=== PATIENT | male | born 1975 | race Caucasian/White ===

== ENCOUNTER 2018-06-08 09:05 | Day surgery (SDC) | payer MEDICAID ==
[2018-06-07 14:08] LABS: BASOPHILS # (AUTO) 0.1 X10'3 (0-0.2); EOSINOPHILS # (AUTO) 0.4 X10'3 (0-0.9); EOSINOPHILS % (AUTO) 4.7 % (0-6); HEMATOCRIT 43.4 % (42.0-52.0); LYMPHOCYTES # (AUTO) 2.6 X10'3 (1.1-4.8); LYMPHOCYTES % (AUTO) 33.6 % (21-51); MEAN CORPUSCULAR HGB CONC 32.2 % (33.0-36.5); MEAN CORPUSCULAR VOLUME 83.8 FL (78-98); MONOCYTES # (AUTO) 0.7 X10'3 (0-0.9); MONOCYTES % (AUTO) 8.7 % (2-12); PLATELET COUNT 374 X10'3 (140-440); RED BLOOD COUNT 5.18 X10'6 (4.70-6.10); RED CELL DISTRIBUTION WIDTH 13.6 % (11.5-14.5); WHITE BLOOD COUNT 7.8 X10'3 (4.5-11.0)
[2018-06-07 14:22] LABS: ALBUMIN 3.8 G/DL (3.4-5.0); ALBUMIN/GLOBULIN RATIO 1.1 (1.1-1.5); ALKALINE PHOSPHATASE 88 IU/L (46-116); BLOOD UREA NITROGEN 15 MG/DL (7-18); CALCIUM 8.8 MG/DL (8.5-10.1); CHLORIDE 102 MMOL/L (99-107); CREATININE 0.75 MG/DL (0.60-1.10); PRE OP ALT 30 U/L (30-65); PRE OP ANION GAP 9 (8-16); PRE OP AST 19 U/L (10-37); PRE OP BILIRUB, TOTAL 0.2 MG/DL (0.0-1.0); PRE OP GLUCOSE 92 MG/DL (70-104); PRE OP SODIUM 140 MMOL/L (135-145); TOTAL CARBON DIOXIDE 29.3 MMOL/L (24-32); TOTAL PROTEIN 7.3 G/DL (6.4-8.2); eGFR > 90 ML/MIN
[2018-06-07 14:32] LABS: PRE OP POTASSIUM 4.5 MMOL/L (3.4-5.1)
[2018-06-08] VITALS (13 sets, daily range): BP systolic 138–163; BP diastolic 76–100
[~2018-06-08] VITALS: Ht 188 cm; Wt 158.1 kg
[~2018-06-08 09:05] MED LIST: ALLO100T PO; BUPR1FIL3; CARV-49 PO; DOCUMENT DATE & TIME OF BETA-BLOCKER PO ONE; DULO-31 PO; HYDR100T27; LAMO100T89; LISI40TA4; METF500T7 PO; NABU500T2 PO; PANT40TA4; TIZA4TAB11 PO; VANCOMYCIN INJ 1000 MG in NORMAL SALINE 250ml IV.SOLN IV ONE; cefazolin/dext.iso 2gm/100 ML IV ONE; famotidine 20mg tablet PO ONE; ringers solution, lacted 1,000 ML IV SCH
[2018-06-08] MEDS ORDERED: BUPIVAcaine/PF 2.5mg/ml (0.25%) 10ml vial ONE ×2 (11:13→13:50)
[2018-06-08] MEDS ORDERED: triamcinolone acetonide 40mg/ml inj ONE (11:13)
[2018-06-08] MEDS ORDERED: methylPREDNISolone sod succ 125mg/2ml vial ONE (11:13)
[2018-06-08] MEDS ORDERED: sevoflurane 250ml liquid IH ONE (11:38)
[2018-06-08] MEDS ORDERED: cloNIDine hcl/PF 100mcg/ml inj ONE (11:40)
[2018-06-08] MEDS ORDERED: ROPIVAcaine 0.5% (5mg/ml) 30ml vial ONE (11:40)
[2018-06-08] MEDS ORDERED: midazolam 2 mg/2 ml injection ONE ×3 (11:41→11:50)
[2018-06-08] MEDS ORDERED: fentaNYL/PF 50MCG/1 ML 2ML syringe ONE (11:41)
[2018-06-08] MEDS ORDERED: ondansetron/PF 4mg/2ml inj IV PRN (12:45)
[2018-06-08] MEDS ORDERED: morphine 4 MG/ML inj SYRINge IV PRN ×2 (12:45)
[2018-06-08] MEDS ORDERED: ringers solution, lacted 1,000 ML IV SCH (12:45)
[2018-06-08] MEDS ORDERED: meperidine/PF 25mg/ml syringe IV PRN ×3 (12:45)
[2018-06-08] MEDS ORDERED: proCHLORperazine 10 MG/2 ml inj IV PRN (12:45)
[2018-06-08] MEDS ORDERED: propofol inj 20 ML IV ONE (13:50)
[2018-06-08] MEDS ORDERED: rocuronium 10mg/ml inj IV ONE (13:50)
--- NOTE | 2018-06-08 14:10 | NUR ---
Received from OR via , accompanied by Anesthesiologist DR ROBLERO and report given by Anesthesiolgist. AWAKENS TO VOICE. VITALS STABLE. DRESSINGS DI. GEORGE PAIN. FINGERS WARM AND PINK.
--- NOTE | 2018-06-08 16:00 | NUR ---
AWAKE AND ORIENTED. VITALS STABLE. DRESSING DI. GEORGE PAIN. HOME WITH HIS AT THIS TIME.
== END 2018-06-08 16:00 | disposition home or self-care (01) ==
LOC: PAS 09:05
PROVIDERS: ATTEND Orthopaedic Surgery
DX: S46.111A Strain of muscle, fascia and tendon of long head of biceps, right arm, initial encounter (principal); M75.111 Incomplete rotator cuff tear or rupture of right shoulder, not specified as traumatic; G56.01 Carpal tunnel syndrome, right upper limb; M19.011 Primary osteoarthritis, right shoulder; M75.41 Impingement syndrome of right shoulder; G56.21 Lesion of ulnar nerve, right upper limb; M65.811 Other synovitis and tenosynovitis, right shoulder; M94.211 Chondromalacia, right shoulder; M75.51 Bursitis of right shoulder; G89.29 Other chronic pain; M19.012 Primary osteoarthritis, left shoulder; E11.42 Type 2 diabetes mellitus with diabetic polyneuropathy; M10.9 Gout, unspecified; E78.5 Hyperlipidemia, unspecified; I11.0 Hypertensive heart disease with heart failure; I50.9 Heart failure, unspecified; K21.9 Gastro-esophageal reflux disease without esophagitis; E66.01 Morbid (severe) obesity due to excess calories; F32.89 Other specified depressive episodes; Z88.1 Allergy status to other antibiotic agents; Z68.41 Body mass index [BMI] 40.0-44.9, adult; Z87.891 Personal history of nicotine dependence; Z79.84 Long term (current) use of oral hypoglycemic drugs; Z88.8 Allergy status to other drugs, medicaments and biological substances; Z79.899 Other long term (current) drug therapy; Z98.890 Other specified postprocedural states; X58.XXXA Exposure to other specified factors, initial encounter; Y93.89 Activity, other specified; Y92.89 Other specified places as the place of occurrence of the external cause; Y99.8 Other external cause status
CPT/HCPCS: 29823; 29824; 29826; 36415; 64719; 64721; 80053; 82948; 85025; 93005; A6222; A6449; J0690; J0735; J2250; J2405; J2704; J2930; J3010; J3301; J3370; J3490; J7120; A4565; A6250; A7000; J2795; J7030